=== PATIENT | female | born 1990 | race Caucasian/White ===

== ENCOUNTER 2017-04-12 09:40 | Outpatient (CLI) | payer BC ==
[~2017-04-12] VITALS: Ht 167.6 cm; Wt 93.2 kg
[2017-04-12 08:50] VITALS: BP 134/75; PULSE 74; TEMP 98.5
[2017-04-12] MEDS ORDERED: PRENATAL (09:56)
[2017-04-12 10:35] VITALS: BP 128/80; PULSE 85
[2017-04-12 11:10] VITALS: BP 135/74; PULSE 72
[2017-04-15] MEDS ORDERED: IBU800 M1 PO (10:50)
[2017-04-15] MEDS ORDERED: PERCOCET 325 MG1 TA2 PO (10:50)
== END 2017-04-12 11:20 | disposition home or self-care (01) ==
LOC: LDRO 09:40 → LDR 09:40 → LDRO 11:20
DX: O62.9 Abnormality of forces of labor, unspecified (principal); Z3A.40 40 weeks gestation of pregnancy
CPT/HCPCS: OP